=== PATIENT | male | born 1995 | race Caucasian/White ===

== ENCOUNTER 2017-03-19 15:43 | Outpatient (CLI) | payer OTHER ==
[2017-03-19] MEDS ORDERED: Iopamidol 370 76% 100 ML VIAL ONE (16:02)
--- NOTE | 2017-03-19 20:55 | CT ---
CT ABDOMEN AND PELVIS WITH IV AND ORAL CONTRAST 03/19/17 HISTORY: Right lower quadrant pain. Prior left inguinal surgery. FINDINGS: The lung bases are clear. A 1.1 cm oval low density lesion within the posterior segment right liver lobe is favored to represent a small cyst. The spleen, kidneys, adrenal glands and pancreas are with in normal limits. Postoperative changes of the left groin are apparent with small amount of residual fluid. At the base of the cecum and appendix is a 1.4 cm lobulated calcification. The appendix is dilated u p to 1.2 cm with a thickened wall and contains fluid. There is subtle stranding in the adjacent fat. Urinary bladder is unremarkable. IMPRESSION: Acute appendicitis. Findings were called to Dr. Harris at 1622 hours. Patient will be directed to the Emergency Department for further care. Code CR POS: [id number]
== END 2017-03-19 15:44 | disposition home or self-care (01) ==
LOC: CT 15:43
PROVIDERS: ATTEND Internal Medicine Gastroenterology
DX: R10.31 Right lower quadrant pain (principal); K35.80 Unspecified acute appendicitis
CPT/HCPCS: 74177

== ENCOUNTER 2017-03-19 16:36 | Day surgery (SDC) | payer OTHER ==
[2017-03-19 17:07] LABS: #Basophils 0.1 thou/uL (0.0-0.2); #Eosinphils 0.1 thou/uL (0.0-0.7); #Lymphocytes 2.6 thou/uL (1.20-3.40); #Monocytes 0.5 thou/uL (0.11-0.59); #Neutrophils 4.6 thou/uL (1.40-6.50); %Basophils 1.2 % (0.0-1.0); %Eosinophils 0.9 % (0.0-10.0); %Lymphocytes 33.2 % (21.0-51.0); %Monocytes 5.9 % (0.0-10.0); Hematocrit 49.2 % (42.0-52.0); Mean Platelet Volume 7.7 fL (7.4-10.4); Red Blood Cell (RBC) Count 5.32 mill/uL (4.70-6.10); White Blood Cell (WBC) Count 7.8 thou/uL (4.8-10.8)
[2017-03-19 17:30] LABS: ALT (SGPT) 16 U/L (8-55); AST (SGOT) 22 U/L (5-34); Alkaline Phosphatase 65 U/L (40-150); Anion Gap 12 mmol/L (10-20); BUN (Urea Nitrogen) 8 mg/dL (8.9-20.6); Bilirubin, Total 0.7 mg/dL (0.2-1.2); Calc. Creatinine Clearance 0 mL/min (70-130); Calcium 10.3 mg/dL (7.8-10.44); Carbon Dioxide 28 mmol/L (22-29); Chloride 101 mmol/L (98-107); Estimated GFR-MDRD Greater than 90; Globulin 2.9 g/dL (2.4-3.5); Protein, Total 7.8 g/dL (6.0-8.3)
[2017-03-19] MEDS ORDERED: Bupivacaine PF 0.5% 30 ML VIAL ONE (18:19)
[2017-03-19] MEDS ORDERED: Piperacillin/Tazobactam 3.375 GM VIAL ONE (18:23)
[2017-03-19] MEDS ORDERED: Fentanyl 100 MCG/2 ML VIAL ONE (18:26)
[2017-03-19] MEDS ORDERED: Ketorolac Tromethamine 30 MG/ML VIAL ONE (18:35)
[2017-03-19] MEDS ORDERED: Piperacillin/Tazobactam 3.375 GM, Admixture Fee 1 EACH in Sodium Chloride 0.9% 100 ML IVPB SCH (18:45)
--- NOTE | 2017-03-19 18:58 | HP ---
DATE OF ADMISSION: 03/19/2017 HISTORY OF PRESENT ILLNESS: Rigoberto Whitehead is a 21-year-old male who presented to [facility] this morning, Friday, with reported onset of pain, right lower quadrant, Friday. At [facility], they obtained plain abdominal x-ray with some questionable findings sent him to see Dr. Harris of [facility] who appreciate his history and exam to be consistent with appendicitis, sent him to [facility] CAT scan where CAT scan revealed acute appendicitis. He was sent to the emergency room, an d I was called to see him at 6:00 p.m. He has been dealing with this most of the day between [facility] and Dr. Harris's office and CAT scan in the emergency room. Evaluation here reveals norm al CBC and basic metabolic profile. CAT scan reveals changes consistent with appendicitis. ALLERGIES: None. TOBACCO: None. ALCOHOL: Rarely. MEDICATIONS: None. PAST SURGICAL HISTORY: Inguinal hernia repair a few months ago in [place]. PAST MEDICAL HISTORY: Noncontributory. SOCIAL HISTORY: The patient is a senior, a [employer] student. He is from [place]. PHYSICAL EXAMINATION: VITAL SIGNS: Blood pressure 141/94, pulse 94, respirations 16, temperature 98.2 degrees, weight 83 kilograms. HEAD, EYES, EARS, NOSE AND THROAT: Unremarkable. LUNGS: Clear to auscultation. CARDIAC: Regular rate and rhythm without murmur or gallop. ABDOMEN: Soft, tenderness in right lower quadrant with guarding. LABORATORY DATA: White count 7.8, hemoglobin 16. Comprehensive metabolic profile was normal. ASSESSMENT AND PLAN: Acute appendicitis. Recommend laparoscopic video appendectomy. Risks of infe ction, bleeding, visceral injury, open procedure were explained and he consents. Questions answered .
[2017-03-19] MEDS ORDERED: PHENYLEPHRINE-NS 100 MCG/ML 10 ML SYRINGE ONE (19:24)
[2017-03-19] MEDS ORDERED: Lidocaine 1% PF 5 ML VIAL ONE (19:24)
[2017-03-19] MEDS ORDERED: Ondansetron HCl/PF 4 MG/2 ML Vial ONE (19:24)
[2017-03-19] MEDS ORDERED: Glycopyrrolate 0.2 MG/ML 5 ML SYRINGE ONE (19:24)
[2017-03-19] MEDS ORDERED: Propofol 200 MG/20 ML VIAL ONE (19:24)
[2017-03-19] MEDS ORDERED: Succinylcholine Chloride 20 MG/ML 10 ml SYRINGE FS ONE (19:24)
--- NOTE | 2017-03-20 00:36 | OP ---
DATE OF PROCEDURE: 03/19/2017 PREOPERATIVE DIAGNOSIS: Acute appendicitis. POSTOPERATIVE DIAGNOSIS: Acute appendicitis. PROCEDURE PERFORMED: Laparoscopic video appendectomy. SURGEON: Dr. Edu Wright. ANESTHESIA: General. Local 0.5% Marcaine, 30 mL, mixed with 1% Xylocaine, 30 mL, 30 mL mixture use d. PROCEDURE IN DETAIL: The patient was taken to the operating room where under general anesthesia, ab domen was clipped of hair. Dee catheter placed at the beginning of the procedure and removed at t he end. Abdomen was prepared with ChloraPrep, draped in routine fashion. Local anesthetic infiltra bren into skin and subcutaneous tissue about each port site. Infraumbilical incision made and pneumo peritoneum to 15 mmHg obtained with the Veress needle, replacing it with a 5 port, video laparoscope inserted. Suprapubic incision was made and a 12 port placed, right lateral subcostal incision was made and a 5 port placed. Appendix was acutely inflamed. Mesoappendix taken down with the LigaSure . The stump of the appendix divided with Endo-CAR blue load stapler. Appendix removed through an E ndobag and submitted to Pathology. Good hemostasis was obtained and noted. Irrigant and pneumoperi toneum evacuated. All instruments removed and all skin incisions approximated with interrupted subd ermal 4-0 Monocryl after suprapubic fascia approximated with 0 Vicryl. The patient tolerated the pr ocedure well.
== END 2017-03-19 21:19 | disposition home or self-care (01) ==
LOC: ERS 16:36 → SDC 18:10 → ERS 18:43 → SDC 21:19
PROVIDERS: ATTEND Specialist
PROC: 0DTJ4ZZ Resection of Appendix, Percutaneous Endoscopic Approach (ICD-10-PCS; principal; 2017-03-19)
DX: K35.89 Other acute appendicitis (principal)
CPT/HCPCS: 36415; 74177; 80053; 85025; 88304; 99285; J0131; J1885; J2001; J2270; J2405; J2543; J2704; J3010; J7050; S0020